=== PATIENT | male | born 1985 | race African-American/Black ===

== ENCOUNTER 2016-10-25 17:09 | Emergency (ER) | payer BC ==
[2016-10-25] MEDS ORDERED: cefTRIAXone 250 MG Vial IM ONE (19:16)
--- NOTE | 2016-10-25 19:21 | EDM.PDOC ---
ED HPI GENERAL MEDICAL PROBLEM - General Chief Complaint: Genitourinary Problem Stated Complaint: PT HAS INFECTION Time Seen by Provider: 10/25/16 18:30 Source of Information: Reports: Patient History Limitations: Reports: No Limitations - History of Present Illness INITIAL COMMENTS - FREE TEXT/NARRATIVE: HISTORY AND PHYSICAL: History of present illness: [Patient comes to the emergency room complaining of burning with urination and white penile discharge for the past 10 days or so. He reports that his girlfriend had some sort of pelvic infection requiring antibiotics 2 weeks ago. She completed her course of antibiotics. Patient does not know what kind infection she had. They have been sexually active within the past 2 weeks. Patient denies fever and chills. No abdominal pain or low back pain. No nausea or vomiting. No swelling to his feet or lower legs.] Review of systems: As per history of present illness and below otherwise all systems reviewed and negative. Past medical history: As per history of present illness and as reviewed below otherwise noncontributory. Surgical history: As per history of present illness and as reviewed below otherwise noncontributory. Social history: No reported history of drug or alcohol abuse. Family history: As per history of present illness and as reviewed below otherwise noncontributory. Physical exam: Gen.: Well-developed well-nourished black male in no acute distress. HEENT: Atraumatic, normocephalic. Anicteric. Oral mucous membranes moist. Lungs: Clear to auscultation, breath sounds equal bilaterally. Heart: S1S2, regular rate and rhythm. Abdomen: Soft, nondistended, nontender. Negative for masses guarding or rebound. Negative for costovertebral tenderness. Pelvis: Stable nontender. Genitourinary: Deferred. Rectal: Deferred. Extremities: Atraumatic, and without deformity. Neurovascular unremarkable. Neuro: Awake, alert, oriented. Motor and sensory unremarkable throughout. Exam nonfocal. Diagnostics: [UA, chlamydia and gonorrhea] Therapeutics: [azithromycin 1 g by mouth, Rocephin 250 mg IM] Impression: [Dysuria] Plan: [Patient is treated presumptively for an STI with a azithromycin and Rocephin in the ER as his urinalysis shows lots of white blood cells and no nitrates.. He is instructed to abstain from sexual activity until his partner can be retreated. Patient is notified that Chlamydia and gonorrhea results should be available in 3 days. He is in agreement with today's plan. All of his questions are answered and concerns are addressed.] Definitive disposition and diagnosis as appropriate pending reevaluation and review of above. urethra Pain Score (Numeric/FACES): 5 - Related Data Allergies Allergy/AdvReac Type Severity Reaction Status Date / Time No Known Allergies Allergy Verified 10/25/16 17:38 Home Meds: Home Meds . [No Known Home Meds] 10/25/16 [History] Past Medical History - Past Health History Medical/Surgical History: Denies Medical/Surgical History Social & Family History - Family History Family Medical History: Noncontributory - Tobacco Use Smoking Status *Q: Never Smoker - Recreational Drug Use Recreational Drug Use: No ED ROS GENERAL - Review of Systems Review Of Systems: ROS reveals no pertinent complaints other than HPI. ED EXAM, RENAL/ - Physical Exam Exam: See Below Course - Vital Signs Last Recorded V/S: Last Vital Signs Temp 97.5 F 10/25/16 19:07 Pulse 76 10/25/16 19:07 Resp 18 10/25/16 19:07 BP 127/74 10/25/16 19:07 Pulse Ox 97 10/25/16 19:07 - Orders/Labs/Meds Orders: Active Orders 24 hr Category Date Time Status CHLAMYDIA TRACHOMATIS/GC AMPLF Stat Lab 10/25/16 18:33 Received CULTURE URINE [RM] Stat Lab 10/25/16 18:33 Received N. GONORRHOEAE (APTIMA) Stat Lab 10/25/16 18:33 Received Azithromycin [Zithromax] Med 10/25/16 19:30 Active 1,000 mg PO Q24H Medication Orders Azithromycin (Zithromax) 1,000 mg PO Q24H AARON Labs: Laboratory Tests 10/25/16 Range/Units 18:33 Urine Color YELLOW Urine Appearance SLT CLOUDY Urine pH 6.5 (5.0-8.0) Ur Specific [place] 1.020 (1.001-1.035) Urine Protein NEGATIVE (NEGATIVE) mg/dL Urine Glucose (UA) NEGATIVE (NEGATIVE) mg/dL Urine Ketones NEGATIVE (NEGATIVE) mg/dL Urine Occult Blood SMALL H (NEGATIVE) Urine Nitrite NEGATIVE (NEGATIVE) Urine Bilirubin NEGATIVE (NEGATIVE) Urine Urobilinogen 1.0 (<2.0) EU/dL Ur Leukocyte Esterase LARGE (NEGATIVE) Urine RBC 1-3 (0-2/HPF) Urine WBC >100 (0-5/HPF) Ur Epithelial Cells FEW (NONE-FEW) Urine Bacteria 1+ H (NEGATIVE) Meds: Medications Generic Name Dose Route Start Last Admin Trade Name Freq PRN Reason Stop Dose Admin Azithromycin 1,000 mg 10/25/16 19:30 Zithromax PO Q24H AARON Discontinued Medications Generic Name Dose Route Start Last Admin Trade Name Freq PRN Reason Stop Dose Admin Ceftriaxone Sodium 250 mg 10/25/16 19:16 Rocephin IM 10/25/16 19:17 ONETIME ONE Lidocaine HCl 1 ml 10/25/16 19:30 Xylocaine 1% INJECT 10/25/16 19:31 ONETIME ONE Lidocaine HCl 2.1 ml 10/25/16 19:41 Xylocaine 1% INJECT 10/25/16 19:42 ONETIME ONE Departure - Departure Time of Disposition: 19:25 Disposition: Home, Self-Care 01 Condition: Good Clinical Impression: Dysuria - Discharge Information Instructions: Dysuria Referrals: PCP,None [Primary Care Provider] - Forms: ED Department Discharge Additional Instructions: The following information is given to patients seen in the emergency department who are being discharged to home. This information is to outline your options for follow-up care. We provide all patients seen in our emergency department with a follow-up referral. The need for follow-up, as well as the timing and circumstances, are variable depending upon the specifics of your emergency department visit. If you don't have a primary care physician on staff, we will provide you with a referral. We always advise you to contact your personal physician following an emergency department visit to inform them of the circumstance of the visit and for follow-up with them and/or the need for any referrals to a consulting specialist. The emergency department will also refer you to a specialist when appropriate. This referral assures that you have the opportunity for follow-up care with a specialist. All of these measure are taken in an effort to provide you with optimal care, which includes your follow-up. Under all circumstances we always encourage you to contact your private physician who remains a resource for coordinating your care. When calling for follow-up care, please make the office aware that this follow-up is from your recent emergency room visit. If for any reason you are refused follow-up, please contact the [facility] emergency department at and asked to speak to the emergency department charge nurse. [facility] [address] [place] [id number] Follow-up with your primary care provider at the clinic listed above in 48-72 hours. Return to ER as needed as discussed. - My Orders Last 24 Hours: My Active Orders 10/25/16 18:33 CHLAMYDIA TRACHOMATIS/GC AMPLF Stat CULTURE URINE [RM] Stat N. GONORRHOEAE (APTIMA) Stat 10/25/16 19:30 Azithromycin [Zithromax] 1,000 mg PO Q24H - Assessment/Plan Last 24 Hours: My Active Orders 10/25/16 18:33 CHLAMYDIA TRACHOMATIS/GC AMPLF Stat CULTURE URINE [RM] Stat N. GONORRHOEAE (APTIMA) Stat 10/25/16 19:30 Azithromycin [Zithromax] 1,000 mg PO Q24H
[2016-10-25] MEDS ORDERED: Lidocaine 1% 50 ML MDV INJECT ONE (19:30)
[2016-10-25] MEDS ORDERED: Azithromycin 250 MG Tab PO SCH (19:30)
[2016-10-25] MEDS ORDERED: Lidocaine 1% 20 ML MDV INJECT ONE (19:41)
[2016-10-26 02:47] VITALS: BP 125/79
== END 2016-10-25 19:56 | disposition home or self-care (01) ==
LOC: MW.ED 17:09
DX: R30.0 Dysuria (principal)
CPT/HCPCS: 81001; 87086; 87491; 87591; 96372; 99283; A9270; J0696

== ENCOUNTER 2017-07-25 07:17 | Emergency (ER) | payer BC ==
[2017-07-25] MEDS ORDERED: Azithromycin 250 MG Tab PO ONE (07:35)
[2017-07-25] MEDS ORDERED: cefTRIAXone 250 MG in Lidocaine 1% 1 ML IM ONE (07:35)
--- NOTE | 2017-07-25 08:00 | EDM.PDOC ---
ED HPI GENERAL MEDICAL PROBLEM - General Chief Complaint: Genitourinary Problem Stated Complaint: INFECTION Time Seen by Provider: 07/25/17 07:33 - History of Present Illness INITIAL COMMENTS - FREE TEXT/NARRATIVE: HISTORY AND PHYSICAL: History of present illness: Patient 32-year-old male presents with a concern of dysuria 1 week. He states he has had STD in the past. Review of systems: As per history of present illness and below otherwise all systems reviewed and negative. Past medical history: As per history of present illness and as reviewed below otherwise noncontributory. Surgical history: As per history of present illness and as reviewed below otherwise noncontributory. Social history: No reported history of drug or alcohol abuse. Family history: As per history of present illness and as reviewed below otherwise noncontributory. Physical exam: HEENT: Atraumatic, normocephalic, pupils reactive, negative for conjunctival pallor or scleral icterus, mucous membranes moist, throat clear, neck supple, nontender, trachea midline. Lungs: Clear to auscultation, breath sounds equal bilaterally, chest nontender. Heart: S1S2, regular, negative for clicks, rubs, or JVD. Abdomen: Soft, nondistended, nontender. Negative for masses or hepatosplenomegaly. Negative for costovertebral tenderness. Pelvis: Stable nontender. Genitourinary: Deferred. Rectal: Deferred. Extremities: Atraumatic, negative for cords or calf pain. Neurovascular unremarkable. Neuro: Awake, alert, oriented. Cranial nerves II through XII unremarkable. Cerebellum unremarkable. Motor and sensory unremarkable throughout. Exam nonfocal. Diagnostics: UA urine culture and sensitivity urine for GC and Chlamydia Therapeutics: Ceftin 250 mg IM and azithromycin 1 g by mouth Impression: #1 urethritis Definitive disposition and diagnosis as appropriate pending reevaluation and review of above. - Related Data Allergies Allergy/AdvReac Type Severity Reaction Status Date / Time No Known Allergies Allergy Verified 07/25/17 07:34 Home Meds: Home Meds . [No Known Home Meds] 10/25/16 [History] Past Medical History - Past Health History Medical/Surgical History: Denies Medical/Surgical History Social & Family History - Family History Family Medical History: Noncontributory - Tobacco Use Smoking Status *Q: Never Smoker Second Hand Smoke Exposure: No - Caffeine Use Caffeine Use: Reports: Coffee, Energy Drinks - Recreational Drug Use Recreational Drug Use: No ED ROS GENERAL - Review of Systems Review Of Systems: ROS reveals no pertinent complaints other than HPI. ED EXAM, GENERAL - Physical Exam Exam: See Below (See dictation) Course - Vital Signs Last Recorded V/S: Last Vital Signs Temp 36.6 C 07/25/17 07:30 Pulse 72 07/25/17 07:30 Resp 18 07/25/17 07:30 BP 129/77 07/25/17 07:30 Pulse Ox 97 07/25/17 07:30 - Orders/Labs/Meds Orders: Active Orders 24 hr Category Date Time Status CHLAMYDIA AND GONORRHEA BY TMA Stat Lab 07/25/17 07:37 Received CULTURE URINE [RM] Stat Lab 07/25/17 07:37 Ordered UA W/MICROSCOPIC [URIN] Stat Lab 07/25/17 07:37 Ordered Labs: Laboratory Tests 07/25/17 Range/Units 07:37 Urine Color YELLOW Urine Appearance CLEAR Urine pH 5.5 (5.0-8.0) Ur Specific [place] 1.025 (1.001-1.035) Urine Protein NEGATIVE (NEGATIVE) mg/dL Urine Glucose (UA) NEGATIVE (NEGATIVE) mg/dL Urine Ketones NEGATIVE (NEGATIVE) mg/dL Urine Occult Blood NEGATIVE (NEGATIVE) Urine Nitrite NEGATIVE (NEGATIVE) Urine Bilirubin NEGATIVE (NEGATIVE) Urine Urobilinogen 0.2 (<2.0) EU/dL Ur Leukocyte Esterase NEGATIVE (NEGATIVE) Urine RBC 0-1 (0-2/HPF) Urine WBC 0-2 (0-5/HPF) Ur Epithelial Cells RARE (NONE-FEW) Urine Bacteria FEW (NEGATIVE) Meds: Medications Discontinued Medications Generic Name Dose Route Start Last Admin Trade Name Saloq PRN Reason Stop Dose Admin Azithromycin 1,000 mg 07/25/17 07:35 07/25/17 07:44 Zithromax PO 07/25/17 07:36 1,000 mg Q24H ONE Administration Ceftriaxone Sodium 250 mg/ 1 mls @ 1 mls/sec 07/25/17 07:35 07/25/17 07:45 Lidocaine HCl IM 07/25/17 07:36 1 mls/sec ONETIME ONE Administration Departure - Departure Time of Disposition: 07:59 Disposition: Home, Self-Care 01 Condition: Good Clinical Impression: Urethritis - Discharge Information Referrals: PCP,None [Primary Care Provider] - Additional Instructions: The following information is given to patients seen in the emergency department who are being discharged to home. This information is to outline your options for follow-up care. We provide all patients seen in our emergency department with a follow-up referral. The need for follow-up, as well as the timing and circumstances, are variable depending upon the specifics of your emergency department visit. If you don't have a primary care physician on staff, we will provide you with a referral. We always advise you to contact your personal physician following an emergency department visit to inform them of the circumstance of the visit and for follow-up with them and/or the need for any referrals to a consulting specialist. The emergency department will also refer you to a specialist when appropriate. This referral assures that you have the opportunity for followup care with a specialist. All of these measure are taken in an effort to provide you with optimal care, which includes your followup. Under all circumstances we always encourage you to contact your private physician who remains a resource for coordinating your care. When calling for followup care, please make the office aware that this follow-up is from your recent emergency room visit. If for any reason you are refused follow-up, please contact the [facility] emergency department at and asked to speak to the emergency department charge nurse. [facility] [address] [place] [phone] Follow-up primary medical doctor and/or clinic above call to schedule routine appointment all partners should be seen evaluated and treated as appropriately as discussed return as needed as discussed - My Orders Last 24 Hours: My Active Orders 07/25/17 07:37 CHLAMYDIA AND GONORRHEA BY TMA Stat CULTURE URINE [RM] Stat UA W/MICROSCOPIC [URIN] Stat - Assessment/Plan Last 24 Hours: My Active Orders 07/25/17 07:37 CHLAMYDIA AND GONORRHEA BY TMA Stat CULTURE URINE [RM] Stat UA W/MICROSCOPIC [URIN] Stat
[2017-07-25 08:15] VITALS: BP 122/83
== END 2017-07-25 08:11 | disposition home or self-care (01) ==
LOC: MW.ED 07:17
DX: N34.2 Other urethritis (principal)
CPT/HCPCS: 81001; 87086; 87491; 87591; 96372; 99283; A9270; J0696